=== PATIENT | male | born 1980 | race Caucasian/White ===

== ENCOUNTER 2021-10-30 16:52 | Emergency (ER) | payer OTHER ==
[2021-10-30] MEDS ORDERED: ZOLOFT 100MG100 MG PO (17:07)
[2021-10-30] MEDS ORDERED: AMOXICILLIN AND1 TA2 PO ×2 (17:35→17:37)
[2021-10-30 18:02] VITALS: BP 146/86
== END 2021-10-30 18:03 | disposition home or self-care (01) ==
LOC: ED 16:52
DX: S61.452A Open bite of left hand, initial encounter (principal); Z23 Encounter for immunization; W54.0XXA Bitten by dog, initial encounter
CPT/HCPCS: 90715; J1885

== ENCOUNTER 2022-04-10 15:41 | Emergency (ER) | payer OTHER ==
[~2022-04-10 15:41] MED LIST: AMOXICILLIN AND1 TA2 PO; ZOLOFT 100MG100 MG PO
[2022-04-10 18:16] VITALS: BP 143/88
== END 2022-04-10 19:07 | disposition home or self-care (01) ==
LOC: ED 15:41
DX: S99.912A Unspecified injury of left ankle, initial encounter (principal); Z28.310 Unvaccinated for COVID-19; W29.8XXA Contact with other powered hand tools and household machinery, initial encounter

== ENCOUNTER 2022-04-24 08:13 | Emergency (ER) | payer OTHER ==
[~2022-04-24] VITALS: Ht 177.8 cm; Wt 99.1 kg
[2022-04-24 08:59] LABS: BASO # 0.03 K/mm3 (0.02-0.10); EOS # 0.03 K/mm3 (0.04-0.40); EOS % 0.2 % (0.0-4.0); HEMATOCRIT 47.7 % (42.0-52.0); LYMPH# 1.26 K/mm3 (1.50-4.00); MEAN CELL VOLUME 88 fl (78-100); MEAN CORPUSCULAR HEMOGLOBIN 29 pg (27-31); MEAN CORPUSCULAR HGB CONC 34 g/dL (33-37); MEAN PLATELET VOLUME 9.9 fl (7.4-10.4); MONO # 1.06 K/mm3 (0.20-0.80); PLATELET COUNT 254 K/mm3 (130-400); RED BLOOD COUNT 5.44 M/mm3 (4.20-5.60); RED CELL DISTRIBUTION WIDTH 12.2 % (11.5-14.5); WHITE BLOOD COUNT 14.3 K/mm3 (4.8-10.8)
[2022-04-24 09:07] LABS: ALBUMIN 4.5 g/dL (3.5-5.0); POTASSIUM 4.1 mmol/L (3.5-5.1)
[2022-04-24 09:08] LABS: CALCIUM 10.1 mg/dL (8.3-10.5)
[2022-04-24 09:09] LABS: TOTAL PROTEIN 8.5 g/dL (6.4-8.3)
[2022-04-24 09:11] LABS: TOTAL BILIRUBIN 0.9 mg/dL (0.2-1.2)
[2022-04-24] MEDS ORDERED: CLEOCIN HCL150 M1 PO (11:10)
[2022-04-24 11:38] VITALS: BP 133/80
== END 2022-04-24 11:23 | disposition home or self-care (01) ==
LOC: ED 08:13
PROVIDERS: Nurse Practitioner
DX: J36 Peritonsillar abscess (principal)
CPT/HCPCS: J1100; J7030; Q9967